=== PATIENT | female | born 1945 | race Caucasian/White ===

== ENCOUNTER 2017-09-21 08:37 | Inpatient (IN) | payer OTHER ==
[2017-09-02 11:18] VITALS: BMI 29.0
--- NOTE | 2017-09-02 12:01 | PAT Medication Instructions ---
Service Date Sep 02, 2017. Current Home Medication List Acetaminophen (Tylenol), 1,000 MG PO PRN Amlodipine Besylate-Olmesartan (Gregorio), 1 TAB PO QAM Calcium Citrate-Vitamin D (Citracal + D3 Maximum), 1 TAB PO QAM Gabapentin (Neurontin), 300 MG PO QPM Ibuprofen (Advil), 400 MG PO PRN Krill Oil (Krill Oil), 1 TAB PO QAM Metoprolol Succ (Toprol Xl) (Toprol-Xl), 50 MG PO QPM Multivitamin (Multivitamin), 1 TAB PO QAM Vitamin B Cmplx/Vitc/Folic Ac (Nephrocaps), 1 CAP PO QAM Medication Instructions For Your Scheduled Surgery -Check with your surgeon for instructions for: Ibuprofen (Advil), 400 MG PO PRN - Hold the following medications 2 weeks prior to surgery: Krill Oil (Krill Oil), 1 TAB PO QAM - Hold the following medications the morning of surgery: Amlodipine Besylate-Olmesartan (Gregorio), 1 TAB PO QAM Calcium Citrate-Vitamin D (Citracal + D3 Maximum), 1 TAB PO QAM Multivitamin (Multivitamin), 1 TAB PO QAM Vitamin B Cmplx/Vitc/Folic Ac (Nephrocaps), 1 CAP PO QAM - Take the following medications the morning of surgery with a sip of water: Acetaminophen (Tylenol), 1,000 MG PO PRN (if needed, can be taken up to four hours before surgery) - Take the following medications as scheduled the night before surgery: Acetaminophen (Tylenol), 1,000 MG PO PRN Gabapentin (Neurontin), 300 MG PO QPM Metoprolol Succ (Toprol Xl) (Toprol-Xl), 50 MG PO QPM If you have any questions please call us at [phone] or [phone] or [phone]
--- NOTE | 2017-09-02 12:45 | DIAGNOSTIC IMAGING REPORT ---
CHEST 2 VIEWS ROUTINE CLINICAL HISTORY: Preoperative chest COMPARISON STUDY: No previous studies for comparison. FINDINGS: The heart is normal in size. There is no failure. There is indistinctness of the left heart border, and there are left basilar interstitial opacities. In the absence of acute respiratory symptoms, the findings are likely chronic. A follow up chest x-ray in 3 months would seem prudent.[ There are no pleural fusions. IMPRESSION: Interstitial left basilar opacities and indistinctness left heart border. In the absence of acute respiratory symptoms, the findings are likely chronic. A follow-up chest x-ray in 3 months time would seem prudent Electronically signed by: Tyron Nichole M.D. 09/02/2017 12:44 PM Dictated Date/Time: 09/02/2017 12:43 PM
[2017-09-02 12:54] LABS: BASO % 1.3 %; BASO ABS # 0.06 K/uL (0-0.2); EOS ABS # 0.09 K/uL (0-0.5); HEMATOCRIT 38.2 % (37-47); HEMOGLOBIN 13.2 g/dL (12.0-16.0); IG# 0.01 K/uL (0.00-0.02); LYMPH % 34.8 %; LYMPH ABS # 1.55 K/uL (1.2-3.4); MEAN CORPUSCULAR HEMOGLOBIN 32.8 pg (25-34); MEAN CORPUSCULAR HGB CONC 34.6 g/dl (32-36); MEAN PLATELET VOLUME 8.9 fL (7.4-10.4); MONO % 8.1 %; MONO ABS # 0.36 K/uL (0.11-0.59); NEUT % 53.6 %; NEUT ABS # 2.38 K/uL (1.4-6.5); PLATELET COUNT 151 K/uL (130-400); RED CELL DISTRIBUTION WIDTH SD 52.4 fL (36.4-46.3); WHITE BLOOD COUNT 4.45 K/uL (4.8-10.8)
[2017-09-02 13:03] LABS: PTT PATIENT 23.6 SECONDS (21.0-31.0)
[2017-09-02 14:31] LABS: ALBUMIN 3.8 gm/dl (3.4-5.0); CALCIUM 9.6 mg/dl (8.5-10.1); CREATININE 1.25 mg/dl (0.60-1.20)
[2017-09-02 14:44] LABS: POTASSIUM 4.3 mmol/L (3.5-5.1)
--- NOTE | 2017-09-20 19:06 | HISTORY & PHYSICAL EXAMINATION ---
DATE OF ADMISSION: 09/21/2017 HISTORY OF PRESENT ILLNESS: This is a 72-year-old female patient of Dr. Oh who is complaining of chronic right shoulder pain. Patient has a history of an ORIF of her proximal humerus. 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 PAST MEDICAL HISTORY: Hypertension, sleep apnea with the use of CPAP, anemia, osteoarthritis, GERD, hiatal hernia, obesity, breast cancer. PAST SURGICAL HISTORY: ORIF, right proximal humerus. FAMILY HISTORY: Noncontributory. REVIEW OF SYSTEMS: The patient complains of chronic right shoulder pain, status post ORIF, proximal humerus fracture. MEDICATIONS: Metoprolol 50 mg daily, Gregorio 5/40 daily, gabapentin 300 mg daily, Krill oil 500 mg daily, vitamin B complex daily, Citrucel plus D3 daily, multivitamin daily. ALLERGIES: INCLUDE LISINOPRIL AND ADHESIVES. PHYSICAL EXAMINATION: GENERAL: Well-developed and well-nourished 72-year-old female, in no acute distress. She is alert, oriented x3, and pleasant. HEENT: Normocephalic and atraumatic. Extraocular motions are intact. Pupils are equal and reactive to light. CARDIOVASCULAR: Heart has regular rate and rhythm. No murmurs appreciated. RESPIRATORY: Lungs are clear. GASTROINTESTINAL: Abdomen is soft and nontender. Bowel sounds are present. EXTREMITIES: Right shoulder reveals full range of motion passively with pain. She has 3/5 strength globally with crepitation with passive range of motion. NEUROLOGIC: Neurovascularly, she is intact in her right upper extremity. DIAGNOSES: Chronic right shoulder pain, status post open reduction and internal fixation, proximal humerus fracture. She also has a history of hypertension, sleep apnea, with the use of CPAP, anemia, osteoarthritis, gastroesophageal reflux disease, hiatal hernia, obesity, breast cancer. PLAN: The patient was advised of her diagnoses. Indications, risks, benefits, postop course have all been reviewed. The patient wished to proceed with the right shoulder removal of hardware and reverse total shoulder arthroplasty. Necessary consent forms, preoperative testing and clearances will be obtained.
[2017-09-21] VITALS (7 sets, daily range): BP systolic 92–124; BP diastolic 54–72; PULSE 73–88; TEMP 36.3–36.5; O2SAT 92–100; Ht 166.4 cm; Wt 85.2 kg
[~2017-09-21] VITALS: Ht 166.4 cm; Wt 85.2 kg
[~2017-09-21 08:37] MED LIST: ACET-1256 PO; ACETAMINOPHEN 500 MG TAB PO SCH; AMLO-3 PO; B-CO1CAP17 PO; BUPIVACAINE/EPINEPHRINE 0.5% MPF 1:200,000 30 ML VIAL ONE; CALC1TAB9 PO; CEFAZOLIN 2000MG IV PUSH 15 ML IV SCH; CeleBREX 200 MG CAP PO SCH; DEXAMETHASONE 4 MG TAB PO SCH; FAMOTIDINE 20 MG TAB PO SCH; GABA-113 PO; GABAPENTIN 300 MG CAP PO SCH; IBUP-1050 PO; KRIL1000 PO; LACTATED RINGER'S 1000ML 1,000 ML IV SCH; METO50TA8 PO; METOCLOPRAMIDE HCL 10 MG TAB PO SCH; MULT-506 PO; ROPIVACAINE 0.5% 5 MG/ML 30 ML VIAL ONE
[2017-09-21] MEDS ORDERED: MIDAZOLAM HCL 1 MG/ML 2ML VIAL ONE (10:12)
[2017-09-21] MEDS ORDERED: ONDANSETRON INJ 2 MG/ML 2 ML VIAL ONE ×2 (10:12→16:51)
[2017-09-21] MEDS ORDERED: FENTANYL CITRATE INJ 50 MCG/1 ML 2 ML VIAL ONE (10:12)
[2017-09-21] MEDS ORDERED: PROPOFOL IV EMULSION 10 MG/ML 20 ML VIAL ONE (10:12)
[2017-09-21] MEDS ORDERED: DEXAMETHASONE SOD INJ 4 MG/ML VIAL ONE (10:12)
[2017-09-21] MEDS ORDERED: GLYCOPYRROLATE INJ 0.2 MG/ML VIAL ONE (10:12)
[2017-09-21] MEDS ORDERED: NEOSTIGMINE METHYLSULFATE 5 MG/5 ML SYR ONE (10:12)
[2017-09-21] MEDS ORDERED: LIDOCAINE HCL 2% 2 ML VIAL (20MG/ML) ONE (10:12)
--- NOTE | 2017-09-21 10:35 | History & Physical Bridge Note ---
H&P Re-Evaluation Bridge Note: I have examined the patient, reviewed the History & Physical and in the interval since the performance of the History & Physical I have noted the following changes of clinical significance: No changes noted
[2017-09-21] MEDS ORDERED: FENTANYL CITRATE INJ 50 MCG/1 ML 2 ML VIAL IV PRN (11:00)
[2017-09-21] MEDS ORDERED: ONDANSETRON INJ 2 MG/ML 2 ML VIAL IV PRN ×2 (11:00→16:00)
[2017-09-21] MEDS ORDERED: HYDROmorphone INJ 1 MG/ML SYR IV PRN (11:00)
[2017-09-21] MEDS ORDERED: EpHEDrine SULFATE INJ 50 MG/ML AMP IV PRN (11:00)
[2017-09-21] MEDS ORDERED: ATROPINE SULFATE 0.1 MG/ML 5ML SYR IV PRN (11:00)
[2017-09-21] MEDS ORDERED: BACITRACIN 50000 UNIT VIAL ONE (11:44)
[2017-09-21] MEDS ORDERED: LIDOCAINE HCL 1% 20 ML VIAL ONE ×2 (11:44→11:45)
[2017-09-21] MEDS ORDERED: EpINEphrine HCL INJ 1 MG/ML 1ML SYRINGE ONE (11:50)
[2017-09-21] MEDS ORDERED: PHENYLEPHRINE HCL INJ 10 MG/ML VIAL ONE (15:27)
[2017-09-21] MEDS ORDERED: METOCLOPRAMIDE HCL INJ 5 MG/ML 2 ML VIAL IV PRN (16:00)
[2017-09-21] MEDS ORDERED: ZOLPIDEM TARTRATE 5 MG TAB PO PRN (16:00)
[2017-09-21] MEDS ORDERED: MoRPHine SULFATE 4 MG/ML 1 ML CARP\\VIAL IV PRN (16:00)
[2017-09-21] MEDS ORDERED: SOD PHOSPHATE/SOD BIPHOSPHATE ENEMA 132 ML BTL PR PRN (16:00)
[2017-09-21] MEDS ORDERED: BISACODYL 10 MG SUPP PR PRN (16:00)
[2017-09-21] MEDS ORDERED: NALOXONE HCL 0.4 MG/1 ML VIAL/CARP IV PRN (16:00)
[2017-09-21] MEDS ORDERED: MAGNESIUM HYDROXIDE SUSP 30 ML UDC PO PRN (16:00)
--- NOTE | 2017-09-21 16:43 | [facility] Post Operative Brief Note ---
Immediate Operative Summary Operative Date September 21, 2017. Pre-Operative Diagnosis Chronic right shoulder pain humeral head avascular necrosis with severe degenerative arthritis with bone loss , status post open reduction and internal fixation, proximal humerus fracture and open Bankart repair Post-Operative Diagnosis same Procedure(s) Performed Right shoulder hardware removal, right reverse total shoulder arthroplasty using CT guided custom VRS implant Surgeon Dr. Winters Clergy Member Surgeon(s) Dandy Judge PA-C Estimated Blood Loss 125cc Findings Consistent with Post-Op Diagnosis Specimens A. Explanted hardware right shoulder B. Right humeral head Drains 2 hemovac Anesthesia Type General Regional Complication(s) none Disposition Disposition: Recovery Room / PACU Overlapping Procedure I was immediately available: during the entire case
--- NOTE | 2017-09-21 17:16 | DIAGNOSTIC IMAGING REPORT ---
R SHOULDER MIN 2 VIEWS ROUTINE CLINICAL HISTORY: 72 years-old Female presenting with Post shoulder surgery. TECHNIQUE: Neutral frontal and transscapular Y views of the right shoulder were obtained. COMPARISON: 08/29/2009. FINDINGS: Postsurgical changes of reverse total shoulder arthroplasty. Overlying skin pat. A surgical drain is in place. No periprosthetic fracture. No malalignment. Visualized portion of the lungs demonstrates right basilar opacities. IMPRESSION: 1. Expected postsurgical appearance status post reverse right shoulder total arthroplasty. 2. Right basilar infiltrates possibly atelectasis. Electronically signed by: Carlitos Watt M.D. 09/21/2017 5:15 PM Dictated Date/Time: 09/21/2017 5:12 PM
--- NOTE | 2017-09-21 17:19 | Anesthesiology Progress Note ---
Anesthesia Post Op Note Date & Time September 21, 2017 at 17:19 Vital Signs Pain Intensity: 0 Vital Signs Past 12 Hours Date Time Temp Pulse Resp B/P (MAP) Pulse Ox O2 Delivery O2 Flow Rate FiO2 09/21/17 17:15 80 16 106/60 98 Nasal Cannula 4 09/21/17 17:05 83 16 106/53 98 Oxymask 10 09/21/17 16:55 89 16 118/61 98 Oxymask 10 09/21/17 16:45 36.2 84 16 110/48 96 Oxymask 10 09/21/17 09:21 36.5 73 20 124/70 99 Room Air Notes Mental Status: alert / awake / arousable, participated in evaluation Pt Amnestic to Procedure: Yes Nausea / Vomiting: adequately controlled Pain: adequately controlled Airway Patency, RR, SpO2: stable & adequate BP & HR: stable & adequate Hydration State: stable & adequate Anesthetic Complications: no major complications apparent
--- NOTE | 2017-09-21 18:28 | DIAGNOSTIC IMAGING REPORT ---
R SHOULDER MIN 2 VIEW ROUTINE CLINICAL HISTORY: 72 years-old Female presenting with RT HARDWARE REMOVAL. TECHNIQUE: 2 fluoroscopic image(s) recorded as part of an intraoperative procedure. COMPARISON: 09/21/2017 at 5:01 PM. FINDINGS/IMPRESSION: There has been interval removal of the liver versus shoulder arthroplasty component. Buttress plate and screw fixation of the proximal humeral metadiaphysis is unchanged. Please see surgical report for further details. Fluoroscopy dosage (mGy): 0.4. Fluoroscopy time: 4.1 seconds. Number of fluoroscopic spot images: 0. Electronically signed by: Carlitos Watt M.D. 09/21/2017 6:26 PM Dictated Date/Time: 09/21/2017 6:25 PM
--- NOTE | 2017-09-21 18:36 | Medical Consult ---
Consultation Date of Consultation: September 21, 2017. Attending Physician: Daniel Winters M.D. Reason for Consultation: Medical Management History of Present Illness Ms. Rose is a 72 y/o female with PMHx of HTN, HANNY on CPAP, Anemia, OA, and GERD /Hiatal Hernia who is S/P R Reverse Total Shoulder by Dr. Winters on 09/21. Patient reports no pain at this time as RUE numb. Unable to move fingers at this time. Good cap refill and drain is in place. Patient brought her CPAP and may use her own at night. She is hemodynamically stable. Pre-Operative labs with mildly elevated Cr and patient reports no known kidney disease. States in the past there was concern for increased proteinuria but this has since stopped. Only have limited labs to compare with last from 2009 that showed Cr. 1.4-1.5. Will monitor with AM labs. Patient is awaiting something to eat with no N/V. Past Medical/Surgical History 1. HTN 2. HANNY on CPAP 3. GERD 4. Hiatal Hernia 5. Breast CA S/P L Lumpectomy and Radiation - 2000 6. S/P Tubal Ligation 7. Anemia 8. OA Family History Patient reports no known family medical history. Social History Smoking Status: Never Smoker Smokeless Tobacco Use: No Alcohol Use: none Drug Use: none Marital Status: Housing Status: lives with significant other Allergies Coded Allergies: Adhesives (Verified Allergy, Unknown, REDNESS SKIN WITH BANDAIDS, 09/21/17) Lisinopril (Verified Allergy, Unknown, PALPITATIONS, 09/21/17) Current Inpatient Medications Current Inpatient Medications Medications (Trade) Dose Ordered Sig/Mitesh Route Start Time Stop Time Status Last Admin Dose Admin Lactated Ringer's 1,000 ml @ 15 mls/hr Q24H IV 09/21/17 06:00 09/22/17 05:59 09/21/17 09:20 15 MLS/HR Gabapentin (Neurontin Cap) 300 mg QPM PO 09/21/17 21:00 10/21/17 20:59 Metoprolol Succinate (Toprol Xl Tab) 50 mg QPM PO 09/21/17 21:00 10/21/17 20:59 UNV Vitamin B Complex/ Vit C/Folic Acid (Nephrocaps) 1 cap QAM PO 5/10/18 09:00 10/22/17 08:59 UNV Non-Formulary Medication (Amlodipine Besylate-Olmesartan (Gregorio)) 1 tab QAM PO 09/22/17 09:00 10/22/17 08:59 UNV Non-Formulary Medication (Calcium Citrate-Vitamin D (Citracal + D3 Maximum)) 1 tab QAM PO 09/22/17 09:00 10/22/17 08:59 UNV Ketorolac Tromethamine (Toradol Inj) 30 mg Q6 PRN IV. 09/21/17 16:00 09/22/17 15:59 UNV Diphenhydramine HCl (Benadryl Cap) 25 mg Q8 PRN PO 09/21/17 16:00 10/21/17 15:59 Zolpidem Tartrate (Ambien Tab) 5 mg HSZ PRN PO 09/21/17 16:00 10/21/17 15:59 Metoclopramide HCl (Reglan Inj) 10 mg Q6H PRN IV 09/21/17 16:00 10/21/17 15:59 Ondansetron HCl (Zofran Inj) 4 mg Q6H PRN IV 09/21/17 16:00 10/21/17 15:59 Pantoprazole Sodium (Protonix Tab) 40 mg QAM PO 09/22/17 09:00 10/22/17 08:59 UNV Potassium Chloride/Dextrose/ Sod Cl 1,000 ml @ 100 mls/hr Q10H IV 09/21/17 15:59 09/22/17 16:00 UNV Oxycodone HCl (Roxicodone Immediate Rel Tab) `1-2 TABS FOR PAIN `1 TAB... Q4H PRN PO 09/21/17 16:00 10/05/17 15:59 Acetaminophen (Tylenol Tab) 1,000 mg Q8 PO 09/21/17 22:00 10/21/17 21:59 UNV Morphine Sulfate (MoRPHine SULFATE INJ) FOR PAIN, 2-4MG 2MG FOR P... Q2H PRN IV 09/21/17 16:00 10/05/17 15:59 Naloxone HCl (Narcan Inj) 0.1 mg Q2M PRN IV 09/21/17 16:00 10/21/17 15:59 Magnesium Hydroxide (Milk Of Magnesia Susp) 30 ml Q6H PRN PO 09/21/17 16:00 10/21/17 15:59 Bisacodyl (Dulcolax Supp) 10 mg DAILY PRN VA 09/21/17 16:00 10/21/17 15:59 Sodium Biphosphate/ Sodium Phosphate (Fleet Enema) 132 ml DAILY PRN VA 09/21/17 16:00 10/21/17 15:59 Docusate Sodium (coLACE CAP) 100 mg BID PO 09/21/17 21:00 10/21/17 20:59 UNV Multivitamins (Multivitamin Tab) 1 tab DAILY PO 09/22/17 09:00 10/22/17 08:59 UNV Cefazolin Sodium 2000 mg/Dextrose 65 ml @ 100 mls/hr Q8H IV 09/21/17 16:00 09/22/17 00:38 UNV Review of Systems Constitutional: No fever, No chills ENT: No nasal symptoms, No sore throat Respiratory: No cough, No shortness of breath Cardiovascular: No chest pain Abdomen: No pain, No nausea, No vomiting, No diarrhea, No constipation Musculoskeletal: + swelling (chronic b/l ankles), No calf pain Genitourinary - Female: No dysuria Neurologic: + numbness/tingling (numbness in RUE) Hematologic / Lymphatic: No abnormal bleeding/bruising Integumentary: No rash Physical Exam Date Time Temp Pulse Resp B/P (MAP) Pulse Ox O2 Delivery O2 Flow Rate FiO2 09/21/17 17:35 Nasal Cannula 09/21/17 17:35 Nasal Cannula 2.0 09/21/17 17:35 36.5 78 14 111/66 (81) 100 Nasal Cannula 2.0 09/21/17 17:15 80 16 106/60 98 Nasal Cannula 4 09/21/17 17:05 83 16 106/53 98 Oxymask 10 09/21/17 16:55 89 16 118/61 98 Oxymask 10 09/21/17 16:45 36.2 84 16 110/48 96 Oxymask 10 09/21/17 09:21 36.5 73 20 124/70 99 Room Air General Appearance: WD/WN, no apparent distress Head: normocephalic, atraumatic Eyes: sclerae normal ENT: hearing grossly normal Neck: supple, no JVD, trachea midline Respiratory/Chest: lungs clear, normal breath sounds, no respiratory distress, no accessory muscle use Cardiovascular: regular rate, rhythm Abdomen/GI: normal bowel sounds, non tender, soft Extremities/Musculoskelatal: + swelling (non-pitting b/l ankles; RUE with dressing C/D/I with drain present, cap refill immediate, unable to move fingers at this time) Neurologic/Psych: alert, oriented x 3 Skin: normal color, warm/dry Assessment & Plan Ms. Rose is a 72 y/o female with PMHx of HTN, HANNY on CPAP, Anemia, OA, and GERD /Hiatal Hernia who is S/P R Reverse Total Shoulder by Dr. Winters on 09/21 S/P R Reverse Total Shoulder with Hardware Removal by Dr. Winters: - Pain management, IVF, PT/OT, DVT prophylaxis, surgical management per primary HTN: - Toprol XL 50 mg daily - Amlodipine-Olmesartan 1 tablet in AM Elevated Cr: - Mildly elevated on pre-op labs with minimal labs to compare to. Patient states she had proteinuria in the past but this has since resolved and isn't aware of any kidney issues - Will monitor AM labs HANNY on CPAP: May use own CPAP Anemia: STABLE - Again limited labs for comparison - only EBL 125 cc - will monitor with AM labs Disposition: - Chronic conditions stable at this time - will assess AM labs for any acute issues. If no change in clinical status, patient would be medically suitable for D/C when deemed necessary by primary team. 72 y/o F Hx HTN, HANNY on CPAP, Anemia, GERD/Hiatal Hernia - post elective R Reverse Total Shoulder. recovering well post-op - toleratiing PO - denies pain , CP , nausea. 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
[2017-09-21] MEDS: D5W AND 1/2NSS + 20MEQ KCL 1,000 ML IV SCH (19:22)
[2017-09-21] MEDS: CEFAZOLIN IV 2,000 MG in SYRINGE 0 ML IV SCH (19:23)
[2017-09-21] MEDS: METOPROLOL SUCC 50MG EXT REL TAB PO SCH (20:42)
[2017-09-21] MEDS: DOCUSATE SODIUM 100 MG CAP PO SCH (20:43)
[2017-09-21] MEDS: GABAPENTIN 300 MG CAP PO SCH (20:43)
[2017-09-21] MEDS: ACETAMINOPHEN 500 MG TAB PO SCH (21:30)
--- NOTE | 2017-09-22 00:55 | OPERATIVE REPORT ---
DATE OF OPERATION: 09/21/2017 INDICATION FOR PROCEDURE: The patient is a 72-year-old female with progressive pain and decreased range of motion and dysfunction. This is related to right shoulder degenerative arthritis. She had a trauma to her shoulder in 2009, which required both an open bony Bankart repair for a glenoid fracture and ORIF of a proximal humerus fracture. The patient healed, did well for many years and presented this year to clinic with clearly evidence of avascular necrosis, collapse of the humeral head, prominence of the screws, and erosion of the glenoid joint surface, medialization of the humerus with respect to the scapula. The patient had considerable bone loss and was unable to be treated with any conventional implants, so we went ahead and had the Biomet VRS glenoid custom baseplate made based on CT-guided templating. The patient still has the Synthes proximal humeral locking plate and screw fixation in place. 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 PROCEDURE: Right shoulder reversed total shoulder arthroplasty using custom VRS glenoid baseplate including excision of deep hardware (10 screws). SURGEON: Daniel Winters MD. ASSISTANTS: Dandy Judge PA-C; Charan Lakhani PA-C; and JUSTIN Santoro. ANESTHESIA: Regional block and general. ESTIMATED BLOOD LOSS: 125 mL DRAINS: Two Hemovacs. SPECIMENS: Humeral head bone fragment. OPERATIVE PROCEDURE: The patient was taken to the operating room, anesthetized under general regional block anesthetic. Andre catheter was placed. She was placed in a 30-40 degree beach chair position. A towel was placed in the medial border right scapula. Head was placed on a foam headrest. She had protective eyewear. Her right shoulder was examined. She had 90 degrees forward elevation, 90 degrees of abduction, passively and external rotation to 0. She had a long scar starting in the deltopectoral interval extending down anteriorly around the proximal humerus. The right shoulder was sterilely prepped and draped with ChloraPrep. An anterior incision was made using the upper 3/4 of her scar. Skin was incised sharply. The subcutaneous fat was divided down to the fascia. Subcutaneous flaps were elevated off the deltopectoral interval. The deltopectoral interval was identified and dissected down through scar tissue to separate the pectoralis medially and the deltoid laterally. There was no well-defined cephalic vein any longer. This took us down the scar tissue overlying the conjoined tendon. The conjoined tendon was dissected out and the lateral strap muscle was freed up resecting the scar tissue between that and the underlying subscapularis tendon tissue. There was thin but intact subscapularis tendon tissue, which was contracted. Superior rotator cuff still intact, although thin and somewhat tendinopathic in appearance. The posterior rotator cuff was still intact. All scar tissue was released from the subacromial space. We released the subdeltoid adhesions around the posterior aspect of the proximal humerus. Scar tissue was resected exposing the plate. I then opened up the rotator interval with a longitudinal incision between the supraspinatus and the subscapularis to the rotator interval scar tissue, extended this is far lateral as the plate based down ascending down along the plate in an L-shaped fashion down along the proximal humerus and did a subperiosteal dissection releasing the subscapularis along with the capsule off the anterior humerus and gradually externally rotating the arm until we were able to anteriorly dislocate the shoulder enough to see the articular surface. The humeral head AVN had collapsed back behind the majority of the screws. There were several prominent screws. They were running into the glenoid. I first could not see the glenoid well due to overlapping thick scar tissue and chronic scarred synovitis. The capsule was released gradually as we externally rotated the humerus staying on bone and staying right at the articular margin of the humeral articular surface on the bone of the humeral neck. That gradually releases around the inferior humeral neck so the head was fully exposed. The plate was then exposed and then went ahead and removed 10 of the proximal screws having 3 inferior screws intact. There are some sutures that were placed from the plate through the rotator cuff that was left intact from previous surgery. At this time, the humeral head was exposed. I used the [employer] Micro press-fit stem for the humerus. We used a centering awl by hand to find the canal followed by reamers up to an 8 stem; however, the metaphyseal bone was very hard proximally so we did not use the eighth final implant. With the eighth reamer in place, the cutting guide was placed to resect proximal humerus at a 20 degree retroverted cut. After the cutting guide was pinned in position, we went ahead and made the humeral head cut and removed the abdirizak and cutting devices. Then I went with sequential broaches starting with a 4 up to a 6 and 6 was very tight press-fit so we chose to stay with a 6 stem. A protective cap was placed over the humerus and the humerus was retracted posterior to the glenoid. At this point, I dissected right down to the middle of the glenoid, removed scar tissue until we found the periphery of the glenoid and released the anterior capsule off the glenoid. We had taken down the previous bony Bankart repair. The old sutures were removed. The scar tissue was released staying right on bone of the glenoid to prevent any injury to the axillary nerve. We used electrocautery on low setting. We also used a Vazquez elevator to free up the capsule. Great care was taken not to disturb any of the bony anatomy. This was keyed into place in the custom implant. Then an inferior and then posterior release was performed. A capsulectomy around the edge of the glenoid removing any scar tissue that remained was all excised. There was marked bone loss of the glenoid with bone loss back to the base of the coracoid proximally and distally there was a little more bone at the inferior aspect of the glenoid with more superior posterior erosion. We used the custom cutting guide and scapula. It was made to visualize the glenoid. We did curette all of the soft tissue off the glenoid, so we had just to expose bone for the implant. Then the custom cutting guide was inserted. The central guide pin was placed. The boss reamer was used. Then, the trial insert was placed to assess the alignment. Then when everything was felt to be appropriate in position, we placed in the final implant which was the VRS glenoid custom baseplate. Then we drilled for the central screw, measured that 40 mm, placed in the large cancellous central screw with excellent fit and the patient had good hard bone for purchase. Then there were 3 peripheral screws. We went a superior, anterior, and inferior in position. These were measured and we used 25-30 mm peripheral screws. There was excellent fixation with the screws. We went ahead and placed a trial implant. We used the inferior offset to put the eccentric offset inferiorly so we would get any notching. We went ahead back to the humerus and we had to rebroach the humerus because it was too tight. On trial reduction to get in the standard humeral tray and a humeral bearing, so we went and started with a 4 mm broach, brought this down to 2 more millimeters below the cut surface and then broached up to a 6 at that level and then removed the proximal bone that we reamed below with an oscillating saw at appropriate 20 degrees retroversion. At that point, did a trial reduction. We were able to reduce the humeral component to the glenoid and was stable through 120 degrees of flexion, 90 degrees abduction 90 degrees forward elevation,crossarm adduction, posterior stress, and abduction 90 degrees and 90 degrees of external rotation. No instability. The trials were removed. The joint was copiously irrigated. The trial was removed from the glenoid. We placed new retractors back in to expose the VRS baseplate. Then we tried the Deshpande taper with appropriate sponges and then placed in the standard 36 glenosphere with the inferior offset directed directly inferiorly. This was impacted in position with appropriate impactors and tested with a Vazquez elevator to be quite secure. Then we went ahead and removed the humeral trial and protector and then went ahead and irrigated this copiously with antibiotic solution with bacitracin and then went ahead and assembled the humeral component which was the 6 Micro stem on the broach handle first. The 6 micro stem was impacted in position at the appropriate version until fully seated and then we went ahead and placed on the 44 standard humeral tray with the 44/36 humeral bearing. This was placed onto the Deshpande taper of the humeral stem and impacted until it was tight and then we reduced this to the glenoid and assessed stability, which was similar to previous exam. I was unable to repair the subscapularis due to contracture anteriorly and we left that unrepaired. The wound was copiously irrigated. We used antibiotic solution and bacitracin again. Then the deltopectoral interval was repaired with [id number] #1 Vicryl sutures. The subcutaneous tissues were closed with interrupted 2-0 Vicryl, skin closed with pat. Sterile dressings were applied. I did use fluoroscopic sales office assistant during the placement of the reamers to get appropriate size in the canal and assess appropriate position and angle as part of the procedure. I had several assistants that helped during the procedure including Dandy Judge, Charan Lakhani, and Kirill Urbina to complete the case and performed the subcutaneous skin closure and will participate in postoperative care of the patient. The patient tolerated the procedure well without complication noted at this time. I attest to the content of the Intraoperative Record and any orders documented therein. Any exceptions are noted below. BERTRAM
[2017-09-22 03:20] VITALS: BP 104/59; PULSE 91; TEMP 36.4; O2SAT 92
[2017-09-22] MEDS: CEFAZOLIN IV 2,000 MG in SYRINGE 0 ML IV SCH (04:29)
[2017-09-22] MEDS: D5W AND 1/2NSS + 20MEQ KCL 1,000 ML IV SCH (04:35)
[2017-09-22] MEDS: ACETAMINOPHEN 500 MG TAB PO SCH ×3 (05:46→21:51)
[2017-09-22] MEDS: KETOROLAC TROMETHAMINE 15 MG/ML VIAL IV. PRN ×2 (05:47→12:02)
[2017-09-22 06:35] LABS: HEMATOCRIT 30.4 % (37-47); HEMOGLOBIN 10.5 g/dL (12.0-16.0); MEAN CORPUSCULAR HEMOGLOBIN 32.1 pg (25-34); MEAN CORPUSCULAR HGB CONC 34.5 g/dl (32-36); MEAN PLATELET VOLUME 8.4 fL (7.4-10.4); PLATELET COUNT 118 K/uL (130-400); RED CELL DISTRIBUTION WIDTH CV 15.4 % (11.5-14.5); RED CELL DISTRIBUTION WIDTH SD 52.4 fL (36.4-46.3); WHITE BLOOD COUNT 10.78 K/uL (4.8-10.8)
[2017-09-22 07:08] LABS: CALCIUM 8.4 mg/dl (8.5-10.1); CREATININE 1.15 mg/dl (0.60-1.20); POTASSIUM 4.4 mmol/L (3.5-5.1)
[2017-09-22 08:04] VITALS: BP 111/66; PULSE 95; TEMP 36.7; O2SAT 94
--- NOTE | 2017-09-22 08:24 | Orthopedic Progress Note ---
Orthopedic Progress Note Date of Service September 22, 2017. Subjective Post OP Day: 1 Reports: feeling well, Denies: chest pain, SOB, nausea / vomiting, light headedness, calf pain Objective calves soft nontender, N/V intact, capillary refill less than 2 sec., dressing C /D/I, A&O x3, hemovac drainage (200/100CC PER SHIFT) FINGERS MOBILE, +5 METAL POLISHER STRENGTH Date Time Temp Pulse Resp B/P (MAP) Pulse Ox O2 Delivery O2 Flow Rate FiO2 09/22/17 08:04 36.7 95 16 111/66 (81) 94 Room Air 09/22/17 07:15 Room Air 09/22/17 03:20 36.4 91 18 104/59 (74) 92 09/21/17 22:49 36.5 80 18 101/60 (74) 92 Room Air 09/21/17 20:36 36.5 88 18 104/65 (78) 99 Nasal Cannula 3.0 09/21/17 19:30 Room Air 4.0 09/21/17 19:30 36.3 81 16 97/60 (72) 100 Nasal Cannula 4.0 09/21/17 18:36 80 14 92/54 (67) 99 Nasal Cannula 2.0 09/21/17 18:05 84 14 124/72 (89) 98 Nasal Cannula 2.0 09/21/17 17:35 Nasal Cannula 09/21/17 17:35 Nasal Cannula 2.0 09/21/17 17:35 36.5 78 14 111/66 (81) 100 Nasal Cannula 2.0 09/21/17 17:15 80 16 106/60 98 Nasal Cannula 4 09/21/17 17:05 83 16 106/53 98 Oxymask 10 09/21/17 16:55 89 16 118/61 98 Oxymask 10 09/21/17 16:45 36.2 84 16 110/48 96 Oxymask 10 09/21/17 09:21 36.5 73 20 124/70 99 Room Air Laboratory Results 24 Hours: Test 09/22/17 06:19 Hematocrit 30.4 % Hemoglobin 10.5 g/dL Assessment & Plan Assessment: POD#1 SP REMOVAL HARDWARE, RIGHT REVERSE TSA Plan: PT/OT- ADLS, AMBULATION. NO SHOULDER ROM. ELBOW, WRIST, AND HAND ONLY. PAIN MANAGEMENT- MARIA ISABEL, TYLENOL DC DRESSING/DRAIN IN AM MEDICAL MANAGEMENT- LABS STABLE, THEY ARE ESSENTIALLY SIGNED OFF. APPRECIATE INPUT. DC PLANNING- DC HOME TUESDAY AM.
--- NOTE | 2017-09-22 08:25 | Discharge Instructions ---
Discharge Instructions Date of Service September 22, 2017. Admission Reason for Admission: Right Shoulder Avr S/P Proximal Humerus Fracture Discharge Discharge Diagnosis / Problem: SP FELT FINISHER RIGHT TSA AND REMOVAL HARDWARE Discharge Goals Goal(s): Decrease discomfort, Improve function, Increase independence Activity Recommendations Activity Limitations: per Instructions/Follow-up section . Instructions / Follow-Up Instructions / Follow-Up ACTIVITY RECOMMENDATIONS: SELF CARE INSTRUCTIONS AFTER TOTAL SHOULDER ARTHROPLASTY REVERSE A. You may do daily exercises as taught in physical therapy while in hospital. No lifting with the operative arm. B. You are to wear your sling/immobilizer at all times EXCEPT when performing your daily exercises and for hygiene purposes. C. You may perform dry, daily dressing changes. Please keep your incision covered. You may shower 48 hours after surgery. Do not apply soap or any ointment/ lotions directly over incision. Do not soak incision in bath tub/swimming pool. D. You may use ice as needed to operative shoulder. SPECIAL CARE INSTRUCTIONS: VERY IMPORTANT TO READ AND REVIEW A. There are a few signs you need to watch for after you are home. Call [facility] at [phone] if you experience any of the followin. Increased severe shoulder pain. Some pain is expected especially when you exercise. 2. Increased swelling in you shoulder or arm; pain or swelling in either upper extremity. 3. Any fluid drainage from the incision. 4. Shortness of breath or chest pain. B. Please call [facility] at [phone] if you have any questions or concerns about your operation or recovery. C. Call your physician if: 1. Temperature is greater than 101 degrees (F). 2. Pain is not relieved by prescribed pain medications. 3. Increase drainage or redness from incision. 4. Unanswered questions or concerns. FOLLOW UP VISIT: Please call [facility] at [phone] to schedule a follow up appointment with Dr. Winters or his PA in 12-14 days from your surgery date. Current Hospital Diet Patient's current hospital diet: Regular Diet Discharge Diet Recommended Diet: Regular Diet Procedures Procedures Performed: Right shoulder hardware removal, right reverse total shoulder arthroplasty using CT guided custom VRS implant Pending Studies Studies pending at discharge: no Laboratory Results Hemoglobin A1c Test 09/02/17 12:15 Range/Units Estimated Average Glucose 126 mg/dl Hemoglobin A1c 6.0 H 4.5-5.6 % Medical Emergencies . Who to Call and When: Medical Emergencies: If at any time you feel your situation is an emergency, please call 911 immediately. . Non-Emergent Contact Non-Emergency issues call your: Surgeon . "Provider Documentation" section prepared by Yana Torres. .
[2017-09-22] MEDS: NEPHROCAPS PO SCH (09:08)
[2017-09-22] MEDS: CALCIUM 600MG + VIT D 400 IU TAB PO SCH (09:08)
[2017-09-22] MEDS: AMLODIPINE BESYLATE 5 MG TAB PO SCH (09:08)
[2017-09-22] MEDS: MULTIVITAMIN TAB PO SCH (09:08)
[2017-09-22] MEDS: DOCUSATE SODIUM 100 MG CAP PO SCH ×2 (09:09→20:23)
[2017-09-22] MEDS: PANTOprazole SOD 40 MG TAB PO SCH (09:09)
[2017-09-22] MEDS: OLMESARTAN MEDOXOMIL 40 MG TAB PO SCH (09:09)
[2017-09-22] MEDS: OXYCODONE HCL IR 5 MG TAB (IMMEDIATE RELEASE) PO PRN ×2 (09:13→20:23)
[2017-09-22] MEDS ORDERED: NURSING VERBAL MED ORDER ONE ×2 (09:15→20:15)
--- NOTE | 2017-09-22 10:17 | Hospitalist Progress Note ---
Hospitalist Progress Note Date of Service September 22, 2017. Subjective Pt evaluation today including: conversation w/ patient, physical exam, lab review, review of inpatient medication list Voiding: conway catheter in place Patient sitting in bedside chair. Eating and drinking OK. +flatus, no BM postop. Pain is well controlled. Hoping for discharge tomorrow. Patient denies any fever, chills, sweats, lightheadedness, dizziness, vision changes, CP, palpitations, edema, SOB, wheezing, cough, abdominal pain, nausea, vomiting, diarrhea, urinary symptoms, melena, numbness/tingling, weakness, anxiety/depression, active bleeding, or new skin discoloration/changes. Medications Current Inpatient Medications Medications (Trade) Dose Ordered Sig/Mitesh Route Start Time Stop Time Status Last Admin Dose Admin Gabapentin (Neurontin Cap) 300 mg QPM PO 09/21/17 21:00 10/21/17 20:59 09/21/17 20:43 300 MG Metoprolol Succinate (Toprol Xl Tab) 50 mg QPM PO 09/21/17 21:00 10/21/17 20:59 Vitamin B Complex/ Vit C/Folic Acid (Nephrocaps) 1 cap QAM PO 09/22/17 09:00 10/22/17 08:59 09/22/17 09:08 1 CAP Amlodipine Besylate (Norvasc Tab) 5 mg QAM PO 09/22/17 09:00 10/22/17 08:59 09/22/17 09:08 5 MG Calcium/Vitamin D (Caltrate Plus Tab) 1 tab QAM PO 09/22/17 09:00 10/22/17 08:59 09/22/17 09:08 1 TAB Ketorolac Tromethamine (Toradol Inj) 15 mg Q6 PRN IV. 09/21/17 16:00 09/22/17 15:59 09/22/17 05:47 15 MG Diphenhydramine HCl (Benadryl Cap) 25 mg Q8 PRN PO 09/21/17 16:00 10/21/17 15:59 Zolpidem Tartrate (Ambien Tab) 5 mg HSZ PRN PO 09/21/17 16:00 10/21/17 15:59 Metoclopramide HCl (Reglan Inj) 10 mg Q6H PRN IV 09/21/17 16:00 6/8/18 15:59 Ondansetron HCl (Zofran Inj) 4 mg Q6H PRN IV 09/21/17 16:00 10/21/17 15:59 Pantoprazole Sodium (Protonix Tab) 40 mg QAM PO 09/22/17 09:00 09/25/17 09:01 09/22/17 09:09 40 MG Oxycodone HCl (Roxicodone Immediate Rel Tab) `1-2 TABS FOR PAIN `1 TAB... Q4H PRN PO 09/21/17 16:00 10/05/17 15:59 09/22/17 09:13 5 MG Acetaminophen (Tylenol Tab) 1,000 mg Q8 PO 09/21/17 22:00 10/21/17 21:59 09/22/17 05:46 1,000 MG Morphine Sulfate (MoRPHine SULFATE INJ) FOR PAIN, 2-4MG 2MG FOR P... Q2H PRN IV 09/21/17 16:00 10/05/17 15:59 Naloxone HCl (Narcan Inj) 0.1 mg Q2M PRN IV 09/21/17 16:00 10/21/17 15:59 Magnesium Hydroxide (Milk Of Magnesia Susp) 30 ml Q6H PRN PO 09/21/17 16:00 10/21/17 15:59 Bisacodyl (Dulcolax Supp) 10 mg DAILY PRN [place] 09/21/17 16:00 10/21/17 15:59 Sodium Biphosphate/ Sodium Phosphate (Fleet Enema) 132 ml DAILY PRN [place] 09/21/17 16:00 10/21/17 15:59 Docusate Sodium (coLACE CAP) 100 mg BID PO 09/21/17 21:00 10/21/17 20:59 09/22/17 09:09 100 MG Multivitamins (Multivitamin Tab) 1 tab DAILY PO 09/22/17 09:00 10/22/17 08:59 09/22/17 09:08 1 TAB Olmesartan (Benicar Tab) 40 mg QAM PO 09/22/17 09:00 10/22/17 08:59 09/22/17 09:09 40 MG Objective Vital Signs Date Time Temp Pulse Resp B/P (MAP) Pulse Ox O2 Delivery O2 Flow Rate FiO2 5/10/18 08:04 36.7 95 16 111/66 (81) 94 Room Air 09/22/17 07:15 Room Air 09/22/17 03:20 36.4 91 18 104/59 (74) 92 09/21/17 22:49 36.5 80 18 101/60 (74) 92 Room Air 09/21/17 20:36 36.5 88 18 104/65 (78) 99 Nasal Cannula 3.0 09/21/17 19:30 Room Air 4.0 09/21/17 19:30 36.3 81 16 97/60 (72) 100 Nasal Cannula 4.0 09/21/17 18:36 80 14 92/54 (67) 99 Nasal Cannula 2.0 09/21/17 18:05 84 14 124/72 (89) 98 Nasal Cannula 2.0 09/21/17 17:35 Nasal Cannula 09/21/17 17:35 Nasal Cannula 2.0 09/21/17 17:35 36.5 78 14 111/66 (81) 100 Nasal Cannula 2.0 09/21/17 17:15 80 16 106/60 98 Nasal Cannula 4 09/21/17 17:05 83 16 106/53 98 Oxymask 10 09/21/17 16:55 89 16 118/61 98 Oxymask 10 09/21/17 16:45 36.2 84 16 110/48 96 Oxymask 10 Physical Exam General Appearance: no apparent distress Eyes: normal inspection, PERRL ENT: hearing grossly normal Neck: supple Respiratory/Chest: lungs clear, no respiratory distress, no accessory muscle use, + crackles (mild, bilateral lung bases) Cardiovascular: regular rate, rhythm, + systolic murmur Abdomen: normal bowel sounds, non tender, soft Extremities: no calf tenderness, + swelling (non-pitting), + pertinent finding (R sling on; hemovac w/ bloody output ) Neurologic/Psychiatric: alert, normal mood/affect, oriented x 3 Skin: normal color, warm/dry, no rash Laboratory Results Last 24 Hours Test 09/22/17 06:19 White Blood Count 10.78 K/uL Red Blood Count 3.27 M/uL Hemoglobin 10.5 g/dL Hematocrit 30.4 % Mean Corpuscular Volume 93.0 fL Mean Corpuscular Hemoglobin 32.1 pg Mean Corpuscular Hemoglobin Concent 34.5 g/dl RDW Standard Deviation 52.4 fL RDW Coefficient of Variation 15.4 % Platelet Count 118 K/uL Mean Platelet Volume 8.4 fL Sodium Level 141 mmol/L Potassium Level 4.4 mmol/L Chloride Level 108 mmol/L Carbon Dioxide Level 27 mmol/L Anion Gap 7.0 mmol/L Blood Urea Nitrogen 23 mg/dl Creatinine 1.15 mg/dl Est Creatinine Clear Calc Drug Dose 49.6 ml/min Estimated GFR () 55.8 Estimated GFR (Non- 48.2 BUN/Creatinine Ratio 20.3 Random Glucose 149 mg/dl Calcium Level 8.4 mg/dl Assessment and Plan Ms. Rose is a 72 y/o female with PMHx of HTN, HANNY on CPAP, Anemia, OA, and GERD /Hiatal Hernia who is S/P R Reverse Total Shoulder by Dr. Winters on 09/21 s/p R Reverse Total Shoulder with Hardware Removal by Dr. Winters on 09/21: - Surgical management, pain management, PT/OT, and DVT prophylaxis as per primary team - Bowel regimen ordered - Encourage incentive spirometer - Postop CBC and PRP- STABLE Acute blood loss anemia in postop setting- STABLE HTN- STABLE: Continue Toprol XL 50 mg daily, Amlodipine-Olmesartan 1 tablet in AM Elevated Cr- RESOLVED HANNY on CPAP: May use own CPAP GI prophylaxis: Protonix daily DVT prophylaxis: As per surgical team Code status: LEVEL I, FULL Dispo: As per primary team- patient is medically stable, will sign-off- please call w/ any question/concerns
[2017-09-22 15:22] VITALS: BP 111/66; PULSE 79; TEMP 36.4; O2SAT 97
[2017-09-22] MEDS: METOPROLOL SUCC 50MG EXT REL TAB PO SCH (20:23)
[2017-09-22] MEDS: GABAPENTIN 300 MG CAP PO SCH (20:24)
[2017-09-22 20:25] VITALS: BP 122/72; PULSE 80
[2017-09-22] MEDS ORDERED: CeleBREX 200 MG CAP PO SCH (21:00)
[2017-09-22 22:56] VITALS: BP 103/65; PULSE 73; TEMP 36.4; O2SAT 91
[2017-09-23] MEDS: ACETAMINOPHEN 500 MG TAB PO SCH (05:11)
[2017-09-23 06:29] LABS: HEMOGLOBIN 10.3 g/dL (12.0-16.0); MEAN CELL VOLUME 94.6 fL (80-100); MEAN CORPUSCULAR HEMOGLOBIN 32.5 pg (25-34); MEAN CORPUSCULAR HGB CONC 34.3 g/dl (32-36); PLATELET COUNT 136 K/uL (130-400); RED CELL DISTRIBUTION WIDTH CV 15.9 % (11.5-14.5); RED CELL DISTRIBUTION WIDTH SD 54.9 fL (36.4-46.3); WHITE BLOOD COUNT 11.32 K/uL (4.8-10.8)
[2017-09-23] MEDS: OXYCODONE HCL IR 5 MG TAB (IMMEDIATE RELEASE) PO PRN ×2 (06:32→10:51)
[2017-09-23 06:41] VITALS: BP 97/57; PULSE 70; TEMP 36.4; O2SAT 95
[2017-09-23] MEDS: MULTIVITAMIN TAB PO SCH (07:46)
[2017-09-23] MEDS: CALCIUM 600MG + VIT D 400 IU TAB PO SCH (07:47)
[2017-09-23] MEDS: DOCUSATE SODIUM 100 MG CAP PO SCH (07:47)
[2017-09-23] MEDS: NEPHROCAPS PO SCH (07:47)
[2017-09-23] MEDS: PANTOprazole SOD 40 MG TAB PO SCH (07:47)
[2017-09-23 07:49] VITALS: BP 100/60; PULSE 78
[2017-09-23] MEDS: OLMESARTAN MEDOXOMIL 40 MG TAB PO SCH (07:50)
[2017-09-23] MEDS: AMLODIPINE BESYLATE 5 MG TAB PO SCH (07:50)
[2017-09-23 08:04] LABS: CALCIUM 8.2 mg/dl (8.5-10.1); CREATININE 1.42 mg/dl (0.60-1.20); POTASSIUM 4.6 mmol/L (3.5-5.1)
--- NOTE | 2017-09-23 08:24 | Orthopedic Progress Note ---
Orthopedic Progress Note Date of Service September 23, 2017. Subjective Post OP Day: 2 Reports: feeling well, pain controlled w PO medications, Denies: complaints, chest pain, SOB, nausea / vomiting, light headedness, calf pain Objective N/V intact, capillary refill less than 2 sec., dressing C/D/I, A&O x3 SLING IN TACT, FINGERS MOBILE. Date Time Temp Pulse Resp B/P (MAP) Pulse Ox O2 Delivery O2 Flow Rate FiO2 09/23/17 07:49 78 100/60 (73) 09/23/17 06:41 36.4 70 16 97/57 (70) 95 Room Air 09/22/17 23:00 CPAP 09/22/17 22:56 36.4 73 16 103/65 (78) 91 Room Air 09/22/17 20:25 80 122/72 (89) 09/22/17 15:30 Room Air 09/22/17 15:22 36.4 79 18 111/66 (81) 97 Room Air Laboratory Results 24 Hours: Test 09/23/17 05:50 Hematocrit 30.0 % Hemoglobin 10.3 g/dL Assessment & Plan Assessment: POD#2 SP REMOVAL HARDWARE, RIGHT REVERSE TSA Plan: PT/OT- ADLS, AMBULATION. NO SHOULDER ROM. ELBOW, WRIST, AND HAND ONLY. PAIN MANAGEMENT- MARIA ISABEL, TYLENOL DC DRESSING/DRAIN MEDICAL MANAGEMENT- LABS STABLE, THEY ARE ESSENTIALLY SIGNED OFF. APPRECIATE INPUT. DC PLANNING- DC HOME TODAY D/C CELEBREX, BUN/ CR ELEVATED, FOLLOW WITH FAMILY DOCTOR. Inhouse Planning Pain Management: PO Tylenol, Oxy IR DVT Prophylaxis: SCDs Discharge Planning Discharge Planning: home Pain Management: PO Tylenol, Oxy IR DVT Prophylaxis: TEDs
[2017-09-23] MEDS ORDERED: RXC5 PO (08:26)
[2017-09-23] MEDS ORDERED: ACET-24 PO (08:26)
[2017-09-23 10:32] VITALS: BP 100/60; PULSE 78; TEMP 36.4; O2SAT 95
== END 2017-09-23 11:57 | disposition home or self-care (01) | DRG 483 ==
LOC: C.ACU 08:37 → C.3E 10:26 → ENRESERV 17:14
PROVIDERS: ADMIT Orthopaedic Surgery Sports Medicine; ATTEND Orthopaedic Surgery Sports Medicine
PROC: 0PPC04Z Removal of Internal Fixation Device from Right Humeral Head, Open Approach (ICD-10-PCS; principal; 2017-09-21 11:45)
PROC: 0RRJ00Z Replacement of Right Shoulder Joint with Reverse Ball and Socket Synthetic Substitute, Open Approach (ICD-10-PCS; principal; 2017-09-21 11:45)
DX: M87.221 Osteonecrosis due to previous trauma, right humerus (principal); D62 Acute posthemorrhagic anemia; Z87.81 Personal history of (healed) traumatic fracture; M19.111 Post-traumatic osteoarthritis, right shoulder; I12.9 Hypertensive chronic kidney disease with stage 1 through stage 4 chronic kidney disease, or unspecified chronic kidney disease; N18.1 Chronic kidney disease, stage 1; G47.33 Obstructive sleep apnea (adult) (pediatric); D64.9 Anemia, unspecified; K44.9 Diaphragmatic hernia without obstruction or gangrene; E66.9 Obesity, unspecified; Z68.30 Body mass index [BMI] 30.0-30.9, adult; Z98.890 Other specified postprocedural states; Z85.3 Personal history of malignant neoplasm of breast; Z92.3 Personal history of irradiation; Z87.442 Personal history of urinary calculi; Z79.899 Other long term (current) drug therapy; Z88.8 Allergy status to other drugs, medicaments and biological substances; Z91.048 Other nonmedicinal substance allergy status

== ENCOUNTER 2022-07-26 06:49 | Observation (INO) ==
--- NOTE | 2022-07-20 11:11 | Anesthesiology Consultation ---
Date of Service July 20, 2022 Assessment & Plan (1) Encounter for pre-operative examination: - medical clearance 07/20/22: "...pre-op exam prior to right total knee replacement...cxr and labs are stable. Pt cleared for surgery..." - Outpatient joint assessment: Patient is currently scheduled for inpatient pathway. If re-evaluated pending system levels during current pandemic/surgeon requests outpatient pathway, patient is not acceptable candidate for outpatient joint program from anesthesia standpoint. - COVID screening: Per curriculum and assessment director on 07/15/2022: Travel screen negative, no known COVID-19 positive contacts or current COVID-19 related symptoms in past 2 weeks. To surgeon's discretion if preop COVID testing is needed. Chart Review Chart Review: Acceptable Risk for Surgery and Patient NOT seen in Pre Admission Testing History Surgery Operation Date: 07/26/22 14:00 Proposed Procedures p Right Total Knee Arthroplasty - Herbie Tolbert MD Height/Weight Height: 5 ft 6.5 in Weight: 88.904 kg Allergies Allergy/AdvReac Type Severity Reaction Status Date / Time lisinopril Allergy Intermediate PALPITATION Verified 07/15/22 08:36 S adhesive Allergy Mild REDNESS Verified 07/15/22 08:36 SKIN WITH BANDAIDS Medications Home Medications Medication Instructions Recorded Confirmed Last Taken Calcium + Vitamin D 1 tab PO QAM 07/15/22 07/15/22 Unknown acetaminophen 500 mg tablet 1,000 mg PO QID PRN Pain 07/15/22 07/15/22 Unknown (Acetaminophen Extra Strength) amlodipine 5 mg-olmesartan 40 mg 1 tab PO QAM 07/15/22 07/15/22 Unknown tablet (Gregorio) cyanocobalamin (vitamin B-12) 1,000 mcg PO QAM 07/15/22 07/15/22 Unknown 1,000 mcg tablet (Vitamin B-12) gabapentin 300 mg capsule 300 mg PO HS 07/15/22 07/15/22 Unknown (Neurontin) krill 1 cap PO QAM 07/15/22 07/15/22 Unknown hgd-[id number]-5-[id number]-iqutfzhbaezoa 300 mg-90 mg-24 mg-50 mg capsule (krill oil) metoprolol tartrate 25 mg tablet 25 mg PO QAM 07/15/22 07/15/22 Unknown multivitamin 1 tab PO QAM 07/15/22 07/15/22 Unknown Past Medical History Medical History (Updated 07/20/22 @ 11:09 by Dana Leone PA-C) CKD (chronic kidney disease) GERD (gastroesophageal reflux disease) History of blood transfusion 2017 History of COVID-19 12/2021 chills, sore throat, muscle aches; no hospitalization, no current issues HTN (hypertension) Hx of breast cancer 2000- lumpectomy and radiation therapy Presence of pessary Sleep apnea cpap Thyroid nodule monitoring Past Family History Family History Other No family history of adverse response to anesthesia Past Surgical History Surgical History (Updated 07/20/22 @ 11:05 by Dana Leone PA-C) History of bunionectomy History of lumpectomy of left breast History of open reduction and internal fixation (ORIF) procedure right - multiple surgeries r/t fracture History of right shoulder replacement 09/22/1718 Grade 1 view, elective glidescope 3, ETT 7.5 + PNB. Hx of colonoscopy Social History Smoking Status: Never smoker Do You Dip or Chew Tobacco: No Hx Alcohol Use: Yes alcohol intake frequency: holidays/special occasions only Hx Substance Use: No substance use type: does not use Testing Laboratory Results 07/19/2022 WBC: 10.5 H/H: 13/39 PLATELETS: 154 SODIUM: 138 POTASSIUM: 4.8 CHLORIDE: 103 CO2: 24 BUN: 31 CREATININE: 1.1 GLUCOSE: 191 PT: 12 PTT: 23.3 INR: 1 Electrocardiogram Date: 07/19/22 Sinus rhythm, rate 75 bpm Chest X-Ray Date: 07/19/22 No acute findings
[~2022-07-26 06:49] MED LIST changes: -ACET-1256 PO; -AMLO-3 PO; -B-CO1CAP17 PO; +BUPIVACAINE 0.5 % 5 MG/1 ML PF 10ML VIAL ONE; -BUPIVACAINE/EPINEPHRINE 0.5% MPF 1:200,000 30 ML VIAL ONE; -CALC1TAB9 PO; -CEFAZOLIN 2000MG IV PUSH 15 ML IV SCH; -DEXAMETHASONE 4 MG TAB PO SCH; -FAMOTIDINE 20 MG TAB PO SCH; -GABA-113 PO; -GABAPENTIN 300 MG CAP PO SCH; +General Order Problem(s) SCH; -IBUP-1050 PO; -KRIL1000 PO; -LACTATED RINGER'S 1000ML 1,000 ML IV SCH; +LR 500ML BOLUS, THEN 15ML/HR IV SCH; -METO50TA8 PO; -METOCLOPRAMIDE HCL 10 MG TAB PO SCH; -MULT-506 PO; +ROPIVACAINE 0.5% HCL/PF 150 MG, BUPIVACAINE 0.75% MPF 20 ML, EPINEPHrine 30MG/30ML (OR ... INSTIL SCH; +TRANEXAMIC ACID 1,000 MG **IV Intra-op IV SCH; +TRANEXAMIC ACID 1,000 MG **IV Pre-op IV SCH; +ceFAZolin 2000MG 2,000 MG/15 ML SYR IV SCH; +dexAMETHasone 4 MG TAB PO SCH
[2022-07-26] MEDS ORDERED: LIDOCAINE 2% MPF LOCAL 5 ML VIAL INFIL ONE (08:38)
[2022-07-26] MEDS ORDERED: PROPOFOL IV EMULSION 10 MG/ML 20 ML VIAL IV ONE ×3 (08:38→11:16)
[2022-07-26] MEDS ORDERED: fentaNYL citrate PF 100 MCG/2 ML VIAL ONE (08:39)
[2022-07-26] MEDS ORDERED: ATROPINE SULFATE 0.1 MG/ML 10ML SYR IV PRN (08:46)
[2022-07-26] MEDS ORDERED: fentaNYL citrate PF 100 MCG/2 ML VIAL IV PRN (08:46)
[2022-07-26] MEDS ORDERED: ePHEDrine sulfate 50 MG/ML AMP IV PRN (08:46)
[2022-07-26] MEDS ORDERED: ONDANSETRON INJ 2 MG/ML 2 ML VIAL IV PRN ×2 (08:46→11:35)
--- NOTE | 2022-07-26 09:17 | History & Physical Report ---
Date of Service July 26, 2022 Assessment & Plan (1) Osteoarthritis of right knee: Plan: I have recommended a right total knee replacement. I explained the risk benefits and alternatives to her and she has consented to proceed. History of Present Illness Chief Complaint: Right knee pain and osteoarthritis Primary Care Provider: Yana Hernadez is a 77-year-old woman with right knee osteoarthritis. After the failure of conservative treatment I recommended proceeding with a total knee repl acement. Allergies Allergy/AdvReac Type Severity Reaction Status Date / Time lisinopril Allergy Intermediate PALPITATION Verified 07/15/22 08:36 S adhesive Allergy Mild REDNESS Verified 07/15/22 08:36 SKIN WITH BANDAIDS Home Medications Medication Instructions Recorded Confirmed Type Calcium + Vitamin D 1 tab PO QAM 07/15/22 07/26/22 History acetaminophen 500 mg tablet 1,000 mg PO QID PRN Pain 07/15/22 07/26/22 History (Acetaminophen Extra Strength) amlodipine 5 mg-olmesartan 40 mg 1 tab PO QAM 07/15/22 07/26/22 History tablet (Gregorio) cyanocobalamin (vitamin B-12) 1,000 mcg PO QAM 07/15/22 07/26/22 History 1,000 mcg tablet (Vitamin B-12) gabapentin 300 mg capsule 300 mg PO HS 07/15/22 07/26/22 History (Neurontin) krill 1 cap PO QAM 07/15/22 07/26/22 History nug-fx-7-[id number]-gez-srsajnytfdtna 300 mg-90 mg-24 mg-50 mg capsule (krill oil) metoprolol tartrate 25 mg tablet 25 mg PO QAM 07/15/22 07/26/22 History multivitamin 1 tab PO QAM 07/15/22 07/26/22 History Past Med/Surg History Medical History (Updated 07/26/22 @ 09:16 by Herbie Tolbert MD) CKD (chronic kidney disease) GERD (gastroesophageal reflux disease) History of blood transfusion 2017 History of COVID-19 12/2021 chills, sore throat, muscle aches; no hospitalization, no current issues HTN (hypertension) Hx of breast cancer 2000- lumpectomy and radiation therapy Presence of pessary Sleep apnea cpap Thyroid nodule monitoring Surgical History History of bunionectomy History of lumpectomy of left breast History of open reduction and internal fixation (ORIF) procedure right - multiple surgeries r/t fracture History of right shoulder replacement 09/22/1718 Grade 1 view, elective glidescope 3, ETT 7.5 + PNB. Hx of colonoscopy Family History Other No family history of adverse response to anesthesia Social History Smoking Status: Never smoker Second Hand Exposure: No; Do You Dip or Chew Tobacco: No; Tobacco Cessation Education Requested by Patient: No Hx Alcohol Use: Yes Hx Substance Use: No Preferred Language: Faroese Communication Ability: Effective Multimedia Assistant Required: No Beliefs That Will Affect Care: None Current Living Situation: Spouse Other Information That Helps Us Care for You: No Feels Safe at Home: Yes Safety Concerns: Feels Safe At This Time Assistive Devices: CPAP Physical Exam Constitutional: Well-developed, well-nourished, no rest Eyes: Pupils equal and reactive to light ENMT: Ears nose and throat are clear Neck: Supple with no masses Respiratory: Clear to auscultation Cardiovascular: Regular rate and rhythm Gastrointestinal (Abdomen): Soft and nontender Musculoskeletal: Right knee tender with effusion. Extension contracture. Varus alignment. Decreased range of motion. Skin: Clean dry and intact Neurologic: Intact Results & Data Results & [facility] ([facility]) Vital Signs (Past 12 Hours) Vital Signs Temp Pulse Resp BP Pulse Ox O2 Del Method 07/26/22 07:53 37.1 C 89 20 141/74 H 97 Room Air Code Status & VTE Plan VTE Prophylaxis Plan VTE Prophylaxis will be ordered: Yes
--- NOTE | 2022-07-26 11:26 | Post Operative Brief Note ---
Immediate Post Op Note v1 Date of Surgery July 26, 2022 Pre & Post Diagnosis Operation Date: 07/26/22 09:30 Pre-Op Diagnosis: Right Knee Osteoarthritis Post-Op Diagnosis: Right Knee Osteoarthritis I identified the patient and participated in the time-out.: Yes Procedure Operation Date: 07/26/22 09:30 Actual Procedures p Right Total Knee Arthroplasty(Right) - Herbie Tolbert MD Surgeon Herbie Tolbert MD Puncher Sheryl Regan PA-C Estimated Blood Loss 5 Findings Consistent with Post-Op Diagnosis Osteoarthritis right knee Complications No complications
--- NOTE | 2022-07-26 11:30 | Operative Report ---
Post Operative Report Pre & Post Diagnosis Operation Date: 07/26/22 09:30 Pre-Op Diagnosis: Right Knee Osteoarthritis Post-Op Diagnosis: Right Knee Osteoarthritis I identified the patient and participated in the time-out.: Yes Procedure Operation Date: 07/26/22 09:30 Actual Procedures p Right Total Knee Arthroplasty(Right) - Herbie Tolbert MD Surgeon Herbie Tolbert MD Drilling Foreman Sheryl Regan PA-C Estimated Blood Loss 5 Findings Consistent with Post-Op Diagnosis Osteoarthritis right knee Specimens Bone and cartilage from right knee Drains No drains Anesthesia Type MAC Spinal Regional Complications No complications Indications Maricarmen is a 77-year-old woman with right knee osteoarthritis. After the failure of conservative treatment I recommended a total knee replacement. I explained the risk benefits and alternatives to her and she consented to proceed. Description of Procedure Implants: [employer] cemented cruciate retaining total knee replacement. Patient-specific implants. Femur size 4. Tibia size 3. Polyethylene size 3 x 11 mm. Patella size 35 mm symmetrical. Procedure: The patient was taken to the operating room and after verifying thier identity and confirming the operative side spinal anesthesia and a regional block was administered. A nonsterile tourniquet was placed on the operative leg and the operative leg was sterilely prepped and draped in usual fashion. A 6 inch incision was made over the patella and carried sharply through subcutaneous tissue. A medial parapatellar arthrotomy was performed, the patella was everted, and planed to a thickness of 14 mm. The appropriate size patella was trialed and the drill holes were completed. The knee was flexed and the femur cleaned of soft tissue. The Oakley [employer] Nephew PSI femoral guide was placed on the distal femur and pinned in place. The distal femur cut was completed. The cutting guide was removed. The preoperatively sized 5 in 1 cutting guide was placed and its position confirmed with the epicondyle axis and anterior cortex. The cuts were completed. The tibia was subluxed forward and the [employer]hew PSI tibial guide was placed and pinned in place. The proximal tibia was cut. The guide was removed. A lamina head boys golf coach was placed with the knee in 90 degrees of flexion in the remaining meniscus and posterior soft tissue were removed. The PCL was preserved. 20 cc of local injection was utilized in the posterior capsule and soft tissues. The knee was balanced in flexion and extension utilizing the [employer]hew gap refrigerator cabinetmaker. The tibia was subluxed forward and the preoperatively sized trial was placed and pinned in place. The femoral trial was placed and the appropriate size poly-was utilized to achieve full extension full flexion and good stability to varus and valgus stress. Trial components were all removed. The knee was thoroughly irrigated with pulse lavage, peroxide wash, and a repeat pulse lavage. Antibiotic cement was mixed using vacuum technique in the tibial and femoral components were cemented in place. The poly-was inserted and the knee held in full extension while the cement hardened. The patella was cemented and clamped. Excess cement was carefully removed. After the cement hardened range of motion was once again assessed and noted to be full including full extension and good stability to varus and valgus stress with central patellar tracking. The knee was irrigated with pulse lavage, a peroxide wash, and a repeat pulse lavage. 20 cc of local was used in the anterior subcutaneous tissues. The arthrotomy was closed with #1 Ethibond, the remaining incision with 2-0 Vicryl and pat. A silver dressing was applied and a compression wrap. The patient tolerated the procedure well and there were no intraoperative complications. Sehryl Regan PA-C assisted in all aspects of the procedure including patient positioning, prepping and draping, manipulation of surgical instruments and retractors, wound closure, dressing placement, and compression wrap placement. I attest to the content of the Intraoperative Record and any orders documented therein. Any exceptions are noted below.
[2022-07-26] MEDS ORDERED: NALOXONE HCL 0.4 MG/1 ML VIAL/CARP IV PRN (11:35)
[2022-07-26] MEDS ORDERED: METOCLOPRAMIDE HCL INJ 5 MG/ML 2 ML VIAL IV PRN (11:35)
[2022-07-26] MEDS ORDERED: SODIUM CHLORIDE 0.9% 1000ML 1,000 ML IV SCH (11:45)
--- NOTE | 2022-07-26 12:16 | Anesthesiology Progress Note ---
Date of Service July 26, 2022 Anesthesia Post Procedure Vital Signs Vital Signs: Temp Pulse Resp BP Pulse Ox O2 Del Method 07/26/22 12:10 81 17 118/64 94 Room Air 07/26/22 12:00 86 18 104/55 L 94 Room Air 07/26/22 11:50 97.5 F L 87 18 102/53 L 97 Room Air 07/26/22 07:53 98.8 F 89 20 141/74 H 97 Room Air Pain Intensity Right Knee: Pain Intensity: 4 Transfer of Care Handoff Completed per policy Notes Mental Status: alert / awake / arousable and participated in evaluation Patient Amnestic to Procedure: Yes Nausea / Vomiting: adequately controlled Pain: adequately controlled Airway Patency, RR, SpO2: stable & adequate BP & HR: stable & adequate Hydration State: stable & adequate Neuraxial Anesthesia: was administered and sensory block is resolving Anesthetic Complications: no major complications apparent and Pt Satisfied with anesthetic care
[2022-07-26] MEDS ORDERED: KETOROLAC TROMETHAMINE 15 MG/ML VIAL IV SCH (14:00)
--- NOTE | 2022-07-26 14:16 | Hospitalist Consultation ---
Date of Consultation July 26, 2022 Assessment & Plan (1) Osteoarthritis of right knee: POD# 0 s/p Right Total Knee Arthroplasty(Right) - Herbie Tolbert MD. EBL 5cc Ancef pre-op Given Decadron/celecoxib w/ surgery, tranexamic acid Pain control/bowel regimen/PT/OT per primary service DVT prophylaxis with ASA 81mg BID Dispo per primary service -- patient plans for home health therapy per report CM to follow Monitor labs in AM (2) HTN (hypertension): BP stable 130/72 post-op Continue amlodipine, metoprolol for AM but hold olmesartan until BP/kidney function assessed Of note, patient on metoprolol tartrate 25mg but only once a day. ?switching to succinate vs splitting and dosing BID -- defer to PCP in f/u outpatient Monitor (3) CKD (chronic kidney disease): CKD 3 based on prior labs in system, no recent for review Holding her olmesartan for AM until BP/kidney function assessed limit further NSAIDs BMP in AM (4) Sleep apnea: CPAP -- has machine in room (5) GERD (gastroesophageal reflux disease): doesn't appear to be on anything chronically ordered pepcid IVP given steroids w/ surgery for GI proph, post-nasal drip/acid reflux consider having patient continue at d/c for ongoing symptoms (6) Right ear impacted cerumen: reported decreased hearing R ear -- eval w/ cerumen impaction started debrox BID -- follow up tomorrow/removal/repeat eval also added mucinex for some sinus congestion/post-nasal drip Plan Thank you for allowing hospitalist service to participate in the care of Ms. Rose. Hospitalist service will follow along in AM for eval but if kidney function stable and R ear cerumen impaction Please call with any questions/concerns. Supervising Physician Co-Signing Physician Notes I personally saw and examined the patient. I verified all morales points and agree with Sheryl Winter PA-C with the following exceptions and/or additions: 77 year old female POD #0 right TKA. burping a lot post operatively. No heartburn of epigastric pain. O/E A&Ox3, HS RRR, no murmurs, Chest CTAB, Abdo SNT, NV intact distal to operation site A/P VTE/Pain/Bowel management per orthopedics - appreciate holding Toradol given likely underlying gastritis. Celebrex ok to continue as long as gastritis not getting worse. GERD - suspect her burping is from ongoing gastritis and recommended she follow up with her PCP regarding this. IV famotidine while inpatient due to NSAID use and steroids pre-operatively. Cerumen impaction not re-examined but agree with above management History of Present Illness Reason for Consultation: med management Requesting Physician: Dr Tolbert Attending Physician: Herbie Tolbert MD History of Present Illness 77yo female with PMHx significant for HTN, CKD, GERD, HANNY, Breast Ca (s/p lumpectomy 2000, undergoes surveillance, just done last month) --> presented for elective RIGHT TKA with Dr Tolbert. Patient evaluated this afternoon following surgery, daughter at bedside. Up in bed, reports she ate lunch, no issues. Still has some numbness/decreased sensation to RLE but able to move/wiggle her toes, sensation to pressure/touch. Daughter hooking up her CPAP (uses nasal pillows). Good compliance reported (AHI in 80-100/hr reported). Denies any chest pain/shortness of breath, abdominal pain, nausea or vomiting. Unknown baseline kidney function but reports she stopped all her meds/vitamins with exception of BP meds last week (including her gabapentin) and had been using a little more ibuprofen for pain control up until surgery. She takes her amlodipine-olmesartan in AM (did not take this morning) but that she takes her metoprolol at night. Discussed holding her olmesartan until the morning until able to eval BP/kidney function. She reports did have episode of possible vertigo sitting up from her EKG pre-op, no further issues. She states she does feel some congestion/post-nasal drip. Hx gerd but not on medication. She also has some R ear hearing loss -- no pain/drainage, suspected she had viral infection but didn't want to take any mucinex or other to interfere with surgery. Eval of ear w/ increased wax -- discussed debrox and will have oncoming team attempt removal if softened up in AM/eval further. She plans on doing home health therapy for the next couple weeks at home. Questions/concerns addressed at this time. Allergies Allergy/AdvReac Type Severity Reaction Status Date / Time lisinopril Allergy Intermediate PALPITATION Verified 07/15/22 08:36 S adhesive Allergy Mild REDNESS Verified 07/15/22 08:36 SKIN WITH BANDAIDS Home Medications Medication Instructions Recorded Confirmed Type Calcium + Vitamin D 1 tab PO QAM 07/15/22 07/26/22 History acetaminophen 500 mg tablet 1,000 mg PO QID PRN Pain 07/15/22 07/26/22 History (Acetaminophen Extra Strength) amlodipine 5 mg-olmesartan 40 mg 1 tab PO QAM 07/15/22 07/26/22 History tablet (Gregorio) cyanocobalamin (vitamin B-12) 1,000 mcg PO QAM 07/15/22 07/26/22 History 1,000 mcg tablet (Vitamin B-12) gabapentin 300 mg capsule 300 mg PO HS 07/15/22 07/26/22 History (Neurontin) krill 1 cap PO QAM 07/15/22 07/26/22 History cip-aj-9-yea-nzh-xptzbqxublyke 300 mg-90 mg-24 mg-50 mg capsule (krill oil) metoprolol tartrate 25 mg tablet 25 mg PO QAM 07/15/22 07/26/22 History multivitamin 1 tab PO QAM 07/15/22 07/26/22 History Patient History Medical History CKD (chronic kidney disease) GERD (gastroesophageal reflux disease) History of blood transfusion 2017 History of COVID-19 12/2021 chills, sore throat, muscle aches; no hospitalization, no current issues HTN (hypertension) Hx of breast cancer 2000- lumpectomy and radiation therapy Presence of pessary Sleep apnea cpap Thyroid nodule monitoring Surgical History History of bunionectomy History of lumpectomy of left breast History of open reduction and internal fixation (ORIF) procedure right - multiple surgeries r/t fracture History of right shoulder replacement 09/22/1718 Grade 1 view, elective glidescope 3, ETT 7.5 + PNB. Hx of colonoscopy Family History Other No family history of adverse response to anesthesia Social History Smoking Status: Never smoker Second Hand Exposure: No; Do You Dip or Chew Tobacco: No; Tobacco Cessation Education Requested by Patient: No Hx Alcohol Use: Yes Hx Substance Use: No Preferred Language: Malay Communication Ability: Effective Furnace Process Plant Operator Required: No Beliefs That Will Affect Care: None Current Living Situation: Spouse Other Information That Helps Us Care for You: No Feels Safe at Home: Yes Safety Concerns: Feels Safe At This Time Assistive Devices: CPAP Review of Systems Review of Systems: All systems reviewed & are unremarkable except as noted in HPI & below Physical Exam Physical Exam: General: WD elderly female sitting up in bed, NAD, daughter at bedside, bearhugger to LE HEENT: head normocephalic, atraumatic, mm slightly dry, trachea midline, erythema posterior pharynx R ear -- no tenderness to palpation tragus/pinna otoscopic examination with significant cerumen impaction, no drainage/erythema Resp: CTAB, no w/c/r, on room air CV: RRR, no significant m/r/g, no pitting edema, pulses palable, cap refill wnl GI: +BS, soft/NT : no conway MSK/Neuro: dressing/dian wrap to RIGHT knee, no drain, pulses palpable, able to wiggle toes, cap refill wnl. strength dorsiflexion/plantar flexion equal Psych: AOx3, pleasant and cooperative Results & Data Results & Data ([facility]) Vital Signs (Past 12 Hours) Vital Signs Temp Pulse Resp BP Pulse Ox O2 Del Method 07/26/22 13:51 36.7 C 78 18 130/72 96 Room Air 07/26/22 13:20 36.4 C L 80 18 113/84 94 Room Air 07/26/22 13:00 36.4 C L 81 18 121/76 94 Room Air 07/26/22 12:50 81 18 127/74 93 Room Air 07/26/22 12:40 79 18 131/70 93 Room Air 07/26/22 12:30 36.9 C 81 19 124/68 93 Room Air 07/26/22 12:20 81 20 122/66 94 Room Air 07/26/22 12:10 81 17 118/64 94 Room Air 07/26/22 12:00 86 18 104/55 L 94 Room Air 07/26/22 11:50 36.4 C L 87 18 102/53 L 97 Room Air 07/26/22 07:53 37.1 C 89 20 141/74 H 97 Room Air Laboratory Results 07/26/22 07/26/22 Range/Units Unknown 07:40 SARS-CoV-2, RNA, NAAT NEGATIVE (NEGATIVE) Blood Type A Positive Antibody Screen NEGATIVE PG Care Time/CCT Total # of Minutes Spent Total Time Spent with Patient: Total time spent is greater than 50% in coordination of care (as documented) at patient's floor/unit and/or counseling patient: Coding Level of Care Code 57651 IN/OBS CONSULT LVL 3,45M Diagnoses Osteoarthritis of right knee M17.11 HTN (hypertension) I10 CKD (chronic kidney disease) N18.9 Sleep apnea G47.30 GERD (gastroesophageal reflux disease) K21.9 Right ear impacted cerumen H61.21
[2022-07-26] MEDS: FAMOTIDINE 20 MG in SYRINGE 3 ML IV SCH (17:13)
[2022-07-26] MEDS: ACETAMINOPHEN 500 MG TAB PO SCH (17:13)
[2022-07-26] MEDS: guaiFENesin 600 MG TABCR PO SCH (18:26)
[2022-07-26] MEDS: ceFAZolin 2000MG 2,000 MG/15 ML SYR IV SCH (18:26)
[2022-07-26] MEDS: oxyCODONE HCL IR 5 MG TAB (IMMEDIATE RELEASE) PO PRN (19:42)
[2022-07-26] MEDS: DOCUSATE SODIUM 100 MG CAP PO SCH (19:43)
[2022-07-26] MEDS: CARBAMIDE PEROXIDE 6.5% 15 ML BTL OTR SCH (19:44)
[2022-07-26] MEDS: ASPIRIN 81 MG ECTAB PO SCH (19:44)
[2022-07-26] MEDS: CeleBREX 200 MG CAP PO SCH (20:52)
[2022-07-26] MEDS ORDERED: GABAPENTIN 300 MG CAP PO SCH (21:00)
[2022-07-26] MEDS ORDERED: METOPROLOL TARTRATE 25 MG TAB PO SCH (21:00)
[2022-07-27] MEDS: ACETAMINOPHEN 500 MG TAB PO SCH ×2 (01:29→08:06)
[2022-07-27] MEDS: ceFAZolin 2000MG 2,000 MG/15 ML SYR IV SCH (01:29)
[2022-07-27 07:01] LABS: Hematocrit (blood only) 32.6 % (37.0-47.0); Hemoglobin 11.2 g/dl (12.0-16.0); Mean Corpuscular Hgb Conc 34.4 g/dL (32.0-36.0); Mean Corpuscular Volume 96.2 fL (80.0-100.0); Mean Platelet Volume 9.5 fL (9.4-12.4); Platelet Count 122 K/uL (130-400); RDW Coefficient of Variation 14.2 % (11.5-14.5); RDW Standard Deviation 50.2 fL (36.4-46.3); Red Blood Count 3.39 M/uL (4.20-5.40); White Blood Count 11.74 K/ul (4.8-10.8)
[2022-07-27 07:09] VITALS: BP 127/73; PULSE 68; TEMP 97.7; O2SAT 96
[2022-07-27 07:16] LABS: Calcium 8.8 mg/dl (8.5-10.1); Creatinine Clr Calc Pharmacy 36.7 ml/min; Est GFR (African American) 40.4 ml/min; Est GFR (Non-African American) 34.8 ml/min; Potassium 4.4 mmol/L (3.5-5.1)
[2022-07-27] MEDS: CARBAMIDE PEROXIDE 6.5% 15 ML BTL OTR SCH (08:06)
[2022-07-27] MEDS: ASPIRIN 81 MG ECTAB PO SCH (08:07)
[2022-07-27] MEDS: FAMOTIDINE 20 MG in SYRINGE 3 ML IV SCH (08:07)
[2022-07-27] MEDS: CeleBREX 200 MG CAP PO SCH (08:07)
[2022-07-27] MEDS: DOCUSATE SODIUM 100 MG CAP PO SCH (08:07)
[2022-07-27] MEDS: guaiFENesin 600 MG TABCR PO SCH (08:08)
--- NOTE | 2022-07-27 08:17 | Orthopedic Progress Note ---
Date of Service July 27, 2022 Assessment & Plan (1) Osteoarthritis of right knee: Plan: Pt is POD #1 from R TKA. -Pain regime as written -DVT ppx with SCDs, TEDS, and ASA 81mg BID -PT/OT evaluation this morning and if pt does well she is stable for D/C home. (2) Right ear impacted cerumen: Plan: -Continue Debrox drops BID, pt also with hx of vertigo. She is to f/u with her PCP for further evaluation and possible lavage. -For symptoms of vertigo, recommend OTC Dramamine (OTC) until f/u with PCP. Admission and Anticipated Discharge Date Admission Date: July 26, 2022 Subjective Pt is POD #1 from from R TKA. -Doing well this morning, resting in bed at time of exam. States pain is very minimal to her R knee at this time. Has been able to ambulate without worsening pain. -States she did have some issues with her vertigo this morning, however seem to be resolved. -Did report yesterday to medicine team that she has had decreased hearing in her R ear, on exam she was found to have cerumen impaction and was given Debrox. -Denies CP, SOB, abdominal pain, fevers or chills. Review of Systems Review of Systems: All systems reviewed & are unremarkable except as noted in Subjective Physical Exam Physical Exam: RLE with dressing in place, able to wiggle toes without issue, good ROM of R an kle, nontender to palpation, compartments are soft, capillary refill less than 2 seconds, distal perfusion and sensation grossly intact. Results & Data ([facility]) Vital Signs (Past 12 Hours) Vital Signs Temp Pulse Resp BP Pulse Ox O2 Del Method 07/27/22 07:09 36.5 C 68 16 127/73 96 Room Air, CPAP 07/27/22 03:16 36.4 C L 64 18 109/66 95 Room Air 07/26/22 23:41 36.7 C 66 18 115/72 93 Room Air Laboratory Results Laboratory Results WBC 11.74 K/ul (4.8-10.8) H 07/27/22 06:08 RBC 3.39 M/uL (4.20-5.40) L 07/27/22 06:08 Hgb 11.2 g/dl (12.0-16.0) L 07/27/22 06:08 Hct 32.6 % (37.0-47.0) L 07/27/22 06:08 MCV 96.2 fL (80.0-100.0) 07/27/22 06:08 MCH 33.0 pg (25.0-34.0) 07/27/22 06:08 MCHC 34.4 g/dL (32.0-36.0) 07/27/22 06:08 RDW Std Deviation 50.2 fL (36.4-46.3) H 07/27/22 06:08 RDW Coeff of Flavio 14.2 % (11.5-14.5) 07/27/22 06:08 Plt Count 122 K/uL (130-400) L 07/27/22 06:08 MPV 9.5 fL (9.4-12.4) 07/27/22 06:08 Sodium 139 mmol/L (136-145) 07/27/22 06:08 Potassium 4.4 mmol/L (3.5-5.1) 07/27/22 06:08 Chloride 105 mmol/L (98-107) 07/27/22 06:08 Carbon Dioxide 26 mmol/L (21-32) 07/27/22 06:08 Anion Gap 8 (3-11) 07/27/22 06:08 BUN 35 mg/dl (6-23) H 07/27/22 06:08 Creatinine 1.46 mg/dl (0.6-1.2) H 07/27/22 06:08 Est Cr Clr Drug Dosing 36.7 ml/min 07/27/22 06:08 Est GFR ( Amer) 40.4 ml/min 07/27/22 06:08 Est GFR (Non-Af Amer) 34.8 ml/min 07/27/22 06:08 BUN/Creatinine Ratio 24.0 (10-20) H 07/27/22 06:08 Glucose 111 mg/dl (70-99(Fasting)) H 07/27/22 06:08 Calcium 8.8 mg/dl (8.5-10.1) 07/27/22 06:08 SARS-CoV-2, RNA, NAAT NEGATIVE (NEGATIVE) 07/26/22 Unknown Blood Type A Positive 07/26/22 07:40 Antibody Screen NEGATIVE 07/26/22 07:40
[2022-07-27] MEDS ORDERED: OLMESARTAN MEDOXOMIL 40 MG TAB PO SCH (09:00)
[2022-07-27] MEDS ORDERED: MULTIVITAMIN TAB PO SCH (09:00)
[2022-07-27] MEDS ORDERED: amLODIPine BESYLATE 5 MG TAB PO SCH (09:00)
[2022-07-27] MEDS ORDERED: METOPROLOL TARTRATE 25 MG TAB PO SCH (09:00)
[2022-07-27] MEDS ORDERED: AMLODIPINE OLMESARTAN PO SCH (09:00)
--- NOTE | 2022-07-27 10:11 | Hospitalist Progress Note ---
Date of Service July 27, 2022 Assessment & Plan (1) Osteoarthritis of right knee: Plan: POD# 1 Total Knee Arthroplasty(Right) - Herbie Tolbert MD. EBL 5cc Ancef pre-op Given Decadron/celecoxib w/ surgery, tranexamic acid Pain control/bowel regimen/PT/OT per primary service DVT prophylaxis with ASA 81mg BID Dispo per primary service -- patient plans for home health therapy per report CM to follow Per patient and ortho to be discharged home later today (2) HTN (hypertension): Plan: BP stable 127/73 today Continue amlodipine, metoprolol for AM but hold olmesartan until BP/kidney funct ion assessed Of note, patient on metoprolol tartrate 25mg but only once a day. ?switching to succinate vs splitting and dosing BID - defer to PCP in f/u outpatient Monitor (3) CKD (chronic kidney disease): Plan: CKD 3 Held olmesartan for AM until BP/kidney function improved limit further NSAIDs (4) Sleep apnea: Plan: CPAP -- has machine in room (5) GERD (gastroesophageal reflux disease): Plan: doesn't appear to be on anything chronically ordered pepcid IVP given steroids w/ surgery for GI proph, post-nasal drip/acid reflux consider having patient continue at d/c for ongoing symptoms and to follow up with PCP (6) Right ear impacted cerumen: Plan: reported decreased hearing R ear - eval w/ cerumen impaction also hx of vertigo in past suggest to try dramamine (OTC) until follows up with PCP started debrox BID yesterday, patient wanted to follow up with PCP for possible lavage to right ear, and did not want curette removal of wax continue mucinex for some sinus congestion/post-nasal drip Plan Thank you for allowing hospitalist service to participate in the care of Ms. Rose. Please call with any questions/concerns. Admission and Anticipated Discharge Date Admission Date: July 26, 2022 Subjective Patient is POD #1 Total Knee Arthroplasty(Right) - Herbie Tolbert MD. EBL 5cc Patient is awake sitting up in recliner with right leg elevated and ice to knee. Patient states she had some mild vertigo this AM and had more debrox ear drops placed in right ear. She denies any chest pain, SOB or dyspnea. She denies any headache, vision changes, N/V or abdominal pain. Review of Systems Review of Systems: All ROS negative unless stated + above or below. Eyes: no blind spots, no diplopia and no eye pain Ear, Nose, Mouth, Throat: + dizziness; no ear trauma, no tinnitus, no facial pain and no dental pain Neurologic: + dizziness; no falls and no headache(s) Physical Exam Constitutional: WD/WN, vitals as above ENMT: Ears: + unable to visualize TM Just had Debrox ear drops placed Neck: trachea midline, no thyromegaly Respiratory: normal respiratory effort, lungs clear to auscultation Cardiovascular: RRR, no murmur, no edema Gastrointestinal (Abdomen): normal bowel sounds, soft, nontender, no hepatosplenomegaly Neurologic: PERRL, EOMI, accommodation nl, no face palsy, no dysarthria Results & Data Results & Data ([facility]) Vital Signs (Past 12 Hours) Vital Signs Temp Pulse Resp BP Pulse Ox O2 Del Method 07/27/22 08:00 Room Air 07/27/22 07:09 36.5 C 68 16 127/73 96 Room Air, CPAP 07/27/22 03:16 36.4 C L 64 18 109/66 95 Room Air 07/26/22 23:41 36.7 C 66 18 115/72 93 Room Air Laboratory Results Abnormal lab results 07/27/22 07/27/22 Range/Units 06:08 06:08 WBC 11.74 H (4.8-10.8) K/ul RBC 3.39 L (4.20-5.40) M/uL Hgb 11.2 L (12.0-16.0) g/dl Hct 32.6 L (37.0-47.0) % RDW Std Deviation 50.2 H (36.4-46.3) fL Plt Count 122 L (130-400) K/uL BUN 35 H (6-23) mg/dl Creatinine 1.46 H (0.6-1.2) mg/dl BUN/Creatinine Ratio 24.0 H (10-20) Glucose 111 H (70-99(Fasting)) mg/dl PG Care Time/CCT Total # of Minutes Spent Total Time Spent with Patient: Total time spent is greater than 50% in coordination of care (as documented) at patient's floor/unit and/or counseling patient: Coding Level of Care Code 90601 SUB INP/OBS CARE 06/09MIN Diagnoses Osteoarthritis of right knee M17.11 HTN (hypertension) I10 CKD (chronic kidney disease) N18.9 Sleep apnea G47.30 GERD (gastroesophageal reflux disease) K21.9 Right ear impacted cerumen H61.21
[2022-07-27] MEDS: oxyCODONE HCL IR 5 MG TAB (IMMEDIATE RELEASE) PO PRN (10:33)
--- NOTE | 2022-08-04 14:05 | Discharge Summary ---
Date of Service August 04, 2022 Admission HPI Per Admitting Provider Maricarmen is a 77-year-old woman with right knee osteoarthritis. After the failure of conservative treatment I recommended proceeding with a total knee replacement. Principal Diagnosis Right knee DJD Discharge Exam RLE with dressing in place, able to wiggle toes without issue, good ROM of R ankle, nontender to palpation, compartments are soft, capillary refill less than 2 seconds, distal perfusion and sensation grossly intact. Discharge Data Allergies Allergy/AdvReac Type Severity Reaction Status Date / Time lisinopril Allergy Intermediate PALPITATION Verified 07/15/22 08:36 S adhesive Allergy Mild REDNESS Verified 07/15/22 08:36 SKIN WITH BANDAIDS Consultations 07/26/22 11:40 Consult Hospitalist Routine Procedures Performed Operation Date: 07/26/22 09:30 Actual Procedures p Right Total Knee Arthroplasty(Right) - Herbie Tolbert MD Ordered Studies 07/26/22 05:00 US - OR guided needle placemen Routine Hospital Course (1) Osteoarthritis of right knee: Pt is POD #1 from R TKA. -Pain regime as written -DVT ppx with SCDs, TEDS, and ASA 81mg BID -PT/OT evaluation this morning and if pt does well she is stable for D/C home. (2) Right ear impacted cerumen: -Continue Debrox drops BID, pt also with hx of vertigo. She is to f/u with her PCP for further evaluation and possible lavage. -For symptoms of vertigo, recommend OTC Dramamine (OTC) until f/u with PCP. Total Time Total Time Spent Total Time Spent (In Minutes): 30 minutes Discharge Plan Discharge Items Patient Disposition: Home - Self-Care Reason For Visit: Right Knee Osteoarthritis Discharge Diagnosis: Right knee osteoarthritis Activity: Per Instructions section Weightbearing: Right weightbearing Weightbearing Comment: WBAT to RLE with walker Non-emergency contact: Surgeon Call non-emergency contact if: your pain is not controlled, your temperature is above 101.5, your wound has increased redness, your wound has increased drainage and your wound pain has increased Follow-up/Referrals: Herbie Tolbert MD [Surgeon] - (Follow up with Dr Marian Tolbert or his PA in 2 weeks for your first post-op appointment ) Murnyack-Woodward,Yana, D.O. [Primary Care Provider] - (f/u with your PCP for ongoing vertigo symptoms and R cerumen removal ) Diet: Regular Addtl Attending Provider Instructions: ACTIVITY RECOMMENDATIONS: SELF CARE INSTRUCTIONS AFTER TOTAL KNEE REPLACEMENT A. You may need to continue a physical therapy program after discharge from the hospital. There are several options available to you. Your doctor will assist you in selecting the best one for you. 1. An out-patient facility 2 to 3 times a week for therapy or home therapy. 2. Continue working on all exercises taught to you in the hospital. Your goals should be to increase bending of your knee to 90 degrees and beyond and to fully straighten your knee. B. You may progress at your own pace from walking with a walker or crutches to a cane; then to no assistive devices. C. Make walking a part of your daily routine. Be up as much as comfortable with rest periods throughout the day. Rest with leg elevation is very important. Use the ice wrap frequently for the first 3-4 weeks. D. There are no restrictions on activities. You may ride in a car, shop, participate in clinical professor and all social activities. E. Wear the long elastic stockings (ETHEL hose) 20 hours a day for 2 weeks after surgery. They can be removed several times a day for laundering and for a bath. F. You may shower, no tub baths until cleared by your doctor. SPECIAL CARE INSTRUCTIONS: VERY IMPORTANT TO READ AND REVIEW A. There are a few signs you need to watch for after you are home. Call [facility] if you notice any of the followin. Increased severe knee pain. Some pain is expected especially when you exercise. 2. Increased swelling in your leg or knee; pain or swelling of the calf muscle in either lower leg. 3. Any fluid drainage from the incision. 4. Shortness of breath or chest pain. B. Please call [facility] at if you have any concerns or questions about your operation or recovery. The doctor or his nurse will return your call promptly. C. You must take antibiotics before dental work, bladder, bowel or other surgery. Your doctor will provide you with a permanent care to carry describing this precaution. IMPORTANT: * REMEMBER TO TAKE ASPIRIN, 81 MG, TWICE DAILY FOR 4 WEEKS UNLESS OTHERWISE DIRECTED. THIS IS YOUR BLOOD THINNER. * HIGH RISK PATIENTS MAY BE PRESCRIBED A STRONGER BLOOD THINNER. THIS WILL BE PROVIDED AT DISCHARGE. * CALL IF INCREASED PAIN, REDNESS, DRAINAGE OR FEVER GREATER THAT 101. * WEAR ETHEL HOSE 20 HOURS PER DAY FOR 2 WEEKS. * YOU MAY HAVE A LARGE BAND-AID LIKE DRESSING (SILVERON). THIS WILL REMAIN ON YOUR INCISION FOR 7 DAYS, THEN CAN BE REMOVED. IF INCISION IS LEAKING THROUGH DRESSING, CALL THE OFFICE . FOLLOW UP VISIT: If appointment is not already scheduled: Please call [facility] to make a follow-up appointment for 2 weeks after your surgery at . Pending Studies at Discharge: No Stand-Alone Forms: My [facility] [employer], Pain - Opioid Pain Management, Smoking Cessation Medications and DC Order Prescriptions: New acetaminophen [Tylenol Extra Strength] 500 mg Tablet 1,000 mg PO Q8H Qty: 30 0RF aspirin 81 mg Tablet,Delayed Release (Dr/Ec) 81 mg PO BID Qty: 60 0RF celecoxib [Celebrex] 200 mg Capsule 200 mg PO BID 14 Days Qty: 28 0RF Continued cyanocobalamin (vitamin B-12) [Vitamin B-12] 1,000 mcg Tablet 1,000 mcg PO QAM amlodipine-olmesartan [Gregorio] 5-40 mg Tablet 1 tab PO QAM Calcium + Vitamin D 1 tab PO QAM multivitamin Tablet 1 tab PO QAM acetaminophen [Acetaminophen Extra Strength] 500 mg Tablet 1,000 mg PO QID PRN (Reason: Pain) gabapentin [Neurontin] 300 mg Capsule 300 mg PO HS metoprolol tartrate 25 mg Tablet 25 mg PO QAM Discontinued [id number] [krill oil] [id number] mg Capsule 1 cap PO QAM Discharge Orders: Discharge Order (Routine); Ordered 07/27/22 Ordered By: Maday Sandoval/Other Patient Handouts: DVT Post Op Prevention Admission Data Admit Date/Time: 07/26/22 11:35 Attending Provider: Herbie Tolbert Admit Provider: Herbie Tolbert Primary Care Provider: Yana Figueroa Other Providers: Blas Carl ; Jose L Trevino ; Sheryl Kee ; Bipin Mejia ; Seb Salguero Other Interventions: Discharge Summary Assessment (RN) Last Done: 07/27/22 10:24 Supervising Physician Co-Signing Physician Notes I personally saw and examined the patient. I verified all morales points and agree with Sheryl Winter PA-C with the following exceptions and/or additions: 77 year old female POD #0 right TKA. burping a lot post operatively. No heartburn of epigastric pain. O/E A&Ox3, HS RRR, no murmurs, Chest CTAB, Abdo SNT, NV intact distal to operation site A/P VTE/Pain/Bowel management per orthopedics - appreciate holding Toradol given likely underlying gastritis. Celebrex ok to continue as long as gastritis not getting worse. GERD - suspect her burping is from ongoing gastritis and recommended she follow up with her PCP regarding this. IV famotidine while inpatient due to NSAID use and steroids pre-operatively. Cerumen impaction not re-examined but agree with above management
== END 2022-07-27 11:39 | disposition home or self-care (01) ==
LOC: ASU 06:49 → 3E 06:49